=== PATIENT | female | born 1930 | race Caucasian/White ===

== ENCOUNTER 2017-05-04 21:49 | Emergency (ER) | payer MEDICARE, BC ==
[2017-05-04 21:56] VITALS: BP 176/76
[2017-05-04] MEDS ORDERED: Acetaminophen 325 MG Tab PO ONE (22:55)
--- NOTE | 2017-05-04 22:55 | EDM.PDOC ---
ED HPI GENERAL MEDICAL PROBLEM - General Chief Complaint: Neurological Problem Stated Complaint: DIZZINESS VIA NORTH Time Seen by Provider: 05/04/17 22:40 Source of Information: Reports: Patient, Old Records History Limitations: Reports: No Limitations - History of Present Illness INITIAL COMMENTS - FREE TEXT/NARRATIVE: 87 yo female reports dizziness when she tries to get up since yesterday morning. No nausea or vomiting. No chest pain. No fever. Has been eating/ drinking less than normal since onset. Had this once in the past and it went away after staying in bed for 3 days. Lives at an assisted living facility. Has a remote hx of stroke about 25 yrs ago. Onset: Unknown/Unsure Onset Date: 05/03/17 Onset Time: 06:00 Duration: Hour(s):, Intermittent Location: Reports: Head Quality: Reports: Other (no pain) Severity: Moderate Improves with: Reports: Rest Worsens with: Reports: Other (getting up) Context: Reports: Other (uncertain) Associated Symptoms: Reports: No Other Symptoms Treatments AFFIRMATIVE ACTION OFFICER: Reports: Other (see below) (none) - Related Data Allergies Allergy/AdvReac Type Severity Reaction Status Date / Time Macrolide Antibiotics Allergy Intermediate Hallucinati Verified 05/04/17 22:22 ons amoxapine [Amoxapine] Allergy Mild Nausea Verified 05/04/17 22:22 amoxicillin [Amoxicillin] Allergy Mild Nausea Verified 05/04/17 22:22 erythromycin base Allergy Mild Nausea Verified 05/04/17 22:22 [Erythromycin Base] Home Meds: Home Meds Aspirin [Adult Low Dose Aspirin EC] 81 mg PO BRK 05/19/13 [History] Clopidogrel [Plavix] 75 mg PO BAMBI 05/19/13 [History] Furosemide [Lasix] 20 mg PO DAILY 05/19/13 [History] Isosorbide Mononitrate [Imdur] 60 mg PO DAILY 05/19/13 [History] Lactobacillus Combo No.11 [Probiotic] 1 each PO DAILY 05/19/13 [History] Nitroglycerin [Nitrostat] 0.4 mg SL Q5M PRN 05/19/13 [History] Nystatin/Triamcinolone Crm [Nystatin/Triamcinolone Cream] 15 gm .XX BID PRN 10/24 [History] Oxybutynin Chloride [Ditropan Xl] 2.5 mg PO BID 05/19/13 [History] Pindolol [Visken] 10 mg PO BID 05/19/13 [History] Simvastatin [Zocor] 80 mg PO BEDTIME 05/19/13 [History] Aspirin [Ecotrin] 325 mg PO BAMBI 11/26/13 [History] Omeprazole [Prilosec] 20 mg PO ACBRK 03/19/14 [History] Past Medical History Cardiovascular History: Reports: ND, Stents Neurological History: Reports: CVA, Vertigo - Past Surgical History HEENT Surgical History: Reports: Cataract Surgery Cardiovascular Surgical History: Reports: Coronary Artery Stent Female Surgical History: Reports: Hysterectomy Musculoskeletal Surgical History: Reports: Knee Replacement Social & Family History - Tobacco Use Smoking Status *Q: Never Smoker Second Hand Smoke Exposure: No - Alcohol Use Days Per Week of Alcohol Use: 0 - Recreational Drug Use Recreational Drug Use: No ED ROS GENERAL - Review of Systems Review Of Systems: See Below Constitutional: Reports: No Symptoms HEENT: Reports: No Symptoms Respiratory: Reports: No Symptoms Cardiovascular: Reports: No Symptoms GI/Abdominal: Reports: No Symptoms : Reports: No Symptoms Musculoskeletal: Reports: No Symptoms Skin: Reports: No Symptoms Neurological: Reports: Dizziness, Headache (mild VILLALTA at the back of his head.). Denies: Numbness, Paresthesia, Seizure, Syncope, Tremors, Weakness Psychiatric: Reports: No Symptoms ED EXAM, DIZZINESS - Physical Exam Exam: See Below Exam Limited By: No Limitations General Appearance: Alert, WD/WN, No Apparent Distress Eye Exam: Bilateral Eye: EOMI, Normal Inspection (no nystagmus at time of exam) , PERRL Ears: Normal External Exam, Normal Canal, Hearing Grossly Normal, Normal TMs Nose: Normal Inspection, Normal Mucosa, No Blood Throat/Mouth: Normal Inspection, Normal Lips, Normal Oropharynx, Normal Voice, No Airway Compromise Head Exam: Atraumatic, Normocephalic Neck: Normal Inspection, Supple, Non-Tender Respiratory/Chest: No Respiratory Distress, Lungs Clear, Normal Breath Sounds, No Accessory Muscle Use Cardiovascular: Regular Rate, Rhythm, No Edema GI/Abdominal: Normal Bowel Sounds, Soft, Non-Tender, No Distention Neurological: Alert, Normal Mood/Affect, CN II-XII Intact, No Motor/Sensory Deficits, Oriented x 3 Back Exam: Normal Inspection. No: CVA Tenderness (R), CVA Tenderness (L) Extremities: Normal Inspection, Normal Range of Motion, Non-Tender, No Pedal Edema Psychiatric: Normal Affect, Normal Mood Skin Exam: Warm, Dry, Intact, Normal Color, No Rash Course - Vital Signs Text/Narrative:: Orthostatic vitals positive, will give a liter of LR for tonight to see if this makes her feel better. Does feel better after this. Last Recorded V/S: Last Vital Signs Temp 37 C 05/04/17 22:34 Pulse 67 05/04/17 22:34 Resp 16 05/04/17 22:34 BP 176/76 H 05/04/17 22:34 Pulse Ox 97 05/04/17 22:34 Orthostatic Blood Pressure [ 107/57 Standing] Orthostatic Blood Pressure [ 107/57 Sitting] Orthostatic Blood Pressure [ 147/63 Supine] - Orders/Labs/Meds Orders: Active Orders 24 hr Category Date Time Status Cardiac Monitoring [RC] .As Directed Care 05/04/17 22:49 Active Orthostatic Vital Signs [RC] ASDIRECTED Care 05/04/17 22:48 Active Labs: Laboratory Tests 05/04/17 05/04/17 Range/Units 23:05 23:05 WBC 5.4 (4.5-11.0) K/uL RBC 4.10 (3.30-5.50) M/uL Hgb 12.1 (12.0-15.0) g/dL Hct 37.3 (36.0-48.0) % MCV 91 (80-98) fL MCH 30 (27-31) pg MCHC 32 (32-36) % Plt Count 221 (150-400) K/uL Sodium 143 (140-148) mmol/L Potassium 3.9 (3.6-5.2) mmol/L Chloride 107 (100-108) mmol/L Carbon Dioxide 26 (21-32) mmol/L Anion Gap 10.5 (5.0-14.0) mmol/L BUN 20 H (7-18) mg/dL Creatinine 0.9 (0.6-1.0) mg/dL Est Cr Clr Drug Dosing 31.98 mL/min Estimated GFR (MDRD) 59 L (>60) Glucose 85 (74-106) mg/dL Calcium 9.4 (8.5-10.1) mg/dL Troponin I < 0.017 (0.000-0.056) ng/mL Meds: Medications Discontinued Medications Generic Name Dose Route Start Last Admin Trade Name Hang PRN Reason Stop Dose Admin Acetaminophen 650 mg 05/04/17 22:55 05/04/17 23:05 Tylenol PO 05/04/17 22:56 650 mg NOW ONE Administration Lactated Ringer's 1,000 mls @ 1,000 mls/hr 05/04/17 23:51 05/05/17 00:05 Ringers, Lactated IV 05/05/17 00:50 1,000 mls/hr BOLUS ONE Administration Meclizine HCl 25 mg 05/04/17 23:41 05/05/17 00:00 Antivert PO 05/04/17 23:42 25 mg ONETIME ONE Administration Departure - Departure Time of Disposition: 01:10 Disposition: Home, Self-Care 01 Condition: Fair Clinical Impression: Orthostatic hypotension, Unsteady gait - Discharge Information Referrals: Paul Ayala MD [Primary Care Provider] - Forms: ED Department Discharge Additional Instructions: Reduce Pindolol dosage by cutting your 10 mg tablets in 1/2 and still take this med then every 12 hrs. See your doctor for recheck this week to further a plan to reduce your orthostatic hypotension. - My Orders Last 24 Hours: My Active Orders 05/04/17 22:48 Orthostatic Vital Signs [RC] ASDIRECTED 05/04/17 22:49 Cardiac Monitoring [RC] .As Directed - Assessment/Plan Last 24 Hours: My Active Orders 05/04/17 22:48 Orthostatic Vital Signs [RC] ASDIRECTED 05/04/17 22:49 Cardiac Monitoring [RC] .As Directed
[2017-05-04] MEDS ORDERED: Meclizine 25 MG Tab PO ONE (23:41)
[2017-05-04] MEDS ORDERED: Lactated Ringers 1,000 ML IV ONE (23:51)
== END 2017-05-05 01:35 | disposition home or self-care (01) ==
LOC: JP.ED 21:49
DX: I95.1 Orthostatic hypotension (principal); R26.81 Unsteadiness on feet; Z88.1 Allergy status to other antibiotic agents; Z88.8 Allergy status to other drugs, medicaments and biological substances; Z79.82 Long term (current) use of aspirin; Z79.899 Other long term (current) drug therapy
CPT/HCPCS: 36415; 80048; 84484; 85027; 99284; A9270; J7120